=== PATIENT | female | born 1980 | race Hispanic/Latino ===

== ENCOUNTER 2024-11-08 20:37 | Emergency (ER) | payer SELFPAY ==
[2024-11-08] MEDS ORDERED: predniSONE 20 MG TAB ONE (22:32)
== END 2024-11-09 00:38 | disposition home or self-care (01) ==
LOC: ERS 20:37
DX: J18.9 Pneumonia, unspecified organism (principal)
CPT/HCPCS: 71045; 87428; J7512; J7620

== ENCOUNTER 2024-11-17 16:43 | Emergency (ER) | payer SELFPAY ==
[2024-11-17] MEDS ORDERED: Dexamethasone 10 MG/ML VIAL ONE (17:38)
[2024-11-17] MEDS ORDERED: Magnesium 2 GM/50 ML BAG (IN WATER) ONE (17:38)
[2024-11-17] MEDS ORDERED: Albuterol 2.5 MG (3 mL) NEB ONE (17:49)
[2024-11-17 18:37] LABS: #Basophils 0.04 10x3/uL (0.0-0.2); #Eosinophils 0.18 10x3/uL (0.0-0.7); #Monocytes 0.75 10x3/uL (0.11-0.59); #Neutrophils 8.53 10x3/uL (1.40-6.50); %Basophils 0.3 % (0.0-1.0); %Eosinophils 1.5 % (0.0-10.0); %Lymphocytes 21.7 % (21.0-51.0); %Monocytes 6.2 % (0.0-10.0); %Neutrophils 70.0 % (42.0-75.0); Hematocrit 38.6 % (36.0-47.0); Hemoglobin 12.7 g/dL (12.0-16.0); Mean Corpuscular Hemoglobin 28.9 pg (27.0-31.0); Mean Corpuscular Volume 87.9 fL (78.0-98.0); Platelet Count 315 10x3/uL (130-400); Red Blood Cell (RBC) Count 4.39 mill/uL (4.20-5.40); White Blood Cell (WBC) Count 12.19 10x3/uL (4.8-10.8)
[2024-11-17 18:50] LABS: ALT (SGPT) 24 U/L (Less than 34); AST (SGOT) 26 U/L (11-34); Albumin 3.5 g/dL (3.1-4.5); Alkaline Phosphatase 88 U/L (40-110); Anion Gap 15 mmol/L (10-20); BUN (Urea Nitrogen) 7 mg/dL (7.0-18.7); Bilirubin, Total 0.4 mg/dL (0.3-1.2); Calc. Creatinine Clearance 0 mL/min (70-130); Calcium 8.7 mg/dL (7.8-10.44); Carbon Dioxide 23 mmol/L (22-29); Chloride 103 mmol/L (98-107); Globulin 3.9 g/dL (2.4-3.5); Glucose 132 mg/dL (70-105); Potassium 4.0 mmol/L (3.5-5.1); Sodium 137 mmol/L (136-145)
== END 2024-11-17 19:41 | disposition home or self-care (01) ==
LOC: ERS 16:43
DX: R05.1 Acute cough (principal); R06.2 Wheezing
CPT/HCPCS: 71045; 80053; 84484; 85025; 93005; 94640; J1100; J3475; J7611; J7620